=== PATIENT | female | born 1940 | race Caucasian/White ===

== ENCOUNTER 2021-05-30 05:50 | Day surgery (SDC) | payer MEDICARE, OTHER ==
[~2021-05-30 05:50] MED LIST: BALANCED SALT IRRIG SOLN COMB1 500 ML, EPINEPHRINE-PF 1:1000 0.5 MG IO ONE
[2021-05-30] MEDS ORDERED: TROPICAMIDE 1% OPHT DROP 3 ML BOTTLE ONE (06:38)
[2021-05-30] MEDS ORDERED: KETOROLAC 0.5% OPHT DROP 3 ML BOTTLE ONE (06:38)
[2021-05-30] MEDS ORDERED: CIPROFLOXACIN 0.3% OPHT DROP 2.5 ML BOTTLE ONE (06:38)
[2021-05-30] MEDS ORDERED: CYCLOPENTOLATE 2% OPHT DROP 2 ML BOTTLE ONE (06:39)
[2021-05-30] MEDS ORDERED: PHENYLEPHRINE 2.5% OPHT DROP 2 ML BOTTLE ONE (06:39)
[2021-05-30] MEDS ORDERED: LIDOCAINE-MPF 2% 5 ML VIAL ONE (07:23)
[2021-05-30] MEDS ORDERED: MOXIFLOXACIN HCL 3 ML OPHT DROPS ONE (07:23)
[2021-05-30] MEDS ORDERED: NEO/POLYMYX B/DEXAME OPHT OINT 3.5 GM TUBE ONE (07:23)
[2021-05-30] MEDS ORDERED: TIMOLOL MALEATE 0.5% OPHT DROP 5 ML BOTTLE ONE (07:23)
[2021-05-30] MEDS ORDERED: BALANCED SALT IRRIG SOLN COMB2 15 ML IRRIG.SOLN ONE (07:24)
[2021-05-30] MEDS ORDERED: HYALURONIDASE,OVINE 200 UNITS/ML VIAL ONE (07:24)
[2021-05-30] MEDS ORDERED: HYALURONATE SODIUM 12.8 MG/0.8 ML DISP.SYRIN ONE (07:24)
[2021-05-30] MEDS ORDERED: BALANCED SALT IRRIG SOLN COMB1 500 ML ONE (07:24)
[2021-05-30] MEDS ORDERED: ACETYLCHOLINE CHLORIDE 1% OPHT 1 EA KIT ONE (07:24)
[2021-05-30] MEDS ORDERED: BUPIVACAINE PF 0.5% 30 ML VIAL ONE (07:25)
[2021-05-30] MEDS ORDERED: BALANCED SALT IRRIG SOLN COMB1 500 ML, EPINEPHRINE-PF 1:1000 0.5 MG IO ONE (08:00)
[2021-05-30] MEDS ORDERED: FENTANYL CITRATE 100 MCG/2 ML AMPUL ONE (08:00)
[2021-05-30] MEDS ORDERED: PROPOFOL 200 MG/20 ML BOTTLE ONE (08:00)
== END 2021-05-30 11:40 ==
LOC: DS 05:50
PROVIDERS: ATTEND Ophthalmology
DX: E11.36 Type 2 diabetes mellitus with diabetic cataract (principal); H25.89 Other age-related cataract; I10 Essential (primary) hypertension; J45.909 Unspecified asthma, uncomplicated; J44.9 Chronic obstructive pulmonary disease, unspecified; M81.0 Age-related osteoporosis without current pathological fracture; Z85.3 Personal history of malignant neoplasm of breast; Z79.899 Other long term (current) drug therapy; Z98.890 Other specified postprocedural states; Z88.6 Allergy status to analgesic agent; Z88.8 Allergy status to other drugs, medicaments and biological substances; Z72.89 Other problems related to lifestyle
CPT/HCPCS: 66984; 71045; J0171; J3010; J3471; J3490 ×2; J7120; J7321; V2632; A4663

== ENCOUNTER 2021-08-08 05:52 | Day surgery (SDC) | payer MEDICARE, OTHER ==
[2021-08-08] MEDS ORDERED: PHENYLEPHRINE 2.5% OPHT DROP 2 ML BOTTLE ONE (06:35)
[2021-08-08] MEDS ORDERED: CYCLOPENTOLATE 1% OPHT DROP 2 ML BOTTLE ONE (06:35)
[2021-08-08] MEDS ORDERED: CIPROFLOXACIN 0.3% OPHT DROP 2.5 ML BOTTLE ONE (06:35)
[2021-08-08] MEDS ORDERED: KETOROLAC 0.5% OPHT DROP 3 ML BOTTLE ONE (06:35)
[2021-08-08] MEDS ORDERED: TROPICAMIDE 1% OPHT DROP 3 ML BOTTLE ONE (06:35)
[2021-08-08] MEDS ORDERED: FENTANYL CITRATE 100 MCG/2 ML AMPUL ONE (07:08)
[2021-08-08] MEDS ORDERED: LIDOCAINE-MPF 2% 5 ML VIAL ONE (07:15)
[2021-08-08] MEDS ORDERED: TIMOLOL MALEATE 0.5% OPHT DROP 5 ML BOTTLE ONE (07:15)
[2021-08-08] MEDS ORDERED: BALANCED SALT IRRIG SOLN COMB2 15 ML IRRIG.SOLN ONE (07:15)
[2021-08-08] MEDS ORDERED: MOXIFLOXACIN HCL 3 ML OPHT DROPS ONE (07:15)
[2021-08-08] MEDS ORDERED: NEO/POLYMYX B/DEXAME OPHT OINT 3.5 GM TUBE ONE (07:15)
[2021-08-08] MEDS ORDERED: BALANCED SALT IRRIG SOLN COMB1 500 ML ONE (07:16)
[2021-08-08] MEDS ORDERED: ACETYLCHOLINE CHLORIDE 1% OPHT 1 EA KIT ONE (07:16)
[2021-08-08] MEDS ORDERED: HYALURONATE SODIUM 12.8 MG/0.8 ML DISP.SYRIN ONE (07:16)
[2021-08-08] MEDS ORDERED: HYALURONIDASE,OVINE 200 UNITS/ML VIAL ONE (07:16)
[2021-08-08] MEDS ORDERED: BUPIVACAINE PF 0.5% 30 ML VIAL ONE (07:16)
[2021-08-08] MEDS ORDERED: BALANCED SALT IRRIG SOLN COMB1 500 ML, EPINEPHRINE-PF 1:1000 0.5 MG IO ONE (09:00)
== END 2021-08-08 10:35 | disposition home or self-care (01) ==
LOC: DS 05:52
PROVIDERS: ATTEND Ophthalmology
DX: E11.36 Type 2 diabetes mellitus with diabetic cataract (principal); H25.89 Other age-related cataract; I12.9 Hypertensive chronic kidney disease with stage 1 through stage 4 chronic kidney disease, or unspecified chronic kidney disease; E11.22 Type 2 diabetes mellitus with diabetic chronic kidney disease; J44.9 Chronic obstructive pulmonary disease, unspecified; N18.9 Chronic kidney disease, unspecified; E03.9 Hypothyroidism, unspecified; F32.9 Major depressive disorder, single episode, unspecified; Z79.899 Other long term (current) drug therapy; Z98.890 Other specified postprocedural states; Z88.6 Allergy status to analgesic agent; Z88.8 Allergy status to other drugs, medicaments and biological substances; Z72.89 Other problems related to lifestyle; Z20.822 Contact with and (suspected) exposure to COVID-19
CPT/HCPCS: 36415; 66984; 84132; 87426; J0171; J3010; J3471; J3490 ×2; J7120; J7321; V2632; A4663

== ENCOUNTER 2024-07-09 20:36 | Emergency (ER) | payer MEDICARE, OTHER ==
[~2024-07-09] VITALS: Ht 165.1 cm; Wt 104.3 kg
[2024-07-09] MEDS ORDERED: TDAP DIPH,PERTUSS,TET VAC/PF 0.5 ML DISP.SYRIN IM ONE (23:06)
[2024-07-09] MEDS: TDAP DIPH,PERTUSS,TET VAC/PF 0.5 ML DISP.SYRIN IM ONE (23:09)
[2024-07-10] MEDS ORDERED: AMOX-427 PO (00:26)
[2024-07-10] MEDS: NEOMY/BACITRA/POLYMYXIN B OINT UD PACKET TP ONE (00:43)
[2024-07-10] MEDS ORDERED: NEOMY/BACITRA/POLYMYXIN B OINT UD PACKET TP ONE (00:43)
[2024-07-10 05:36] VITALS: BP 129/85; TEMP 207.5; O2SAT 93
== END 2024-07-10 05:37 | disposition home or self-care (01) ==
LOC: ER 20:51
DX: S71.012A Laceration without foreign body, left hip, initial encounter (principal); G30.9 Alzheimer's disease, unspecified; F02.80 Dementia in other diseases classified elsewhere, unspecified severity, without behavioral disturbance, psychotic disturbance, mood disturbance, and anxiety; G20.A1 Parkinson's disease without dyskinesia, without mention of fluctuations; K58.9 Irritable bowel syndrome, unspecified; Z79.899 Other long term (current) drug therapy; Z88.5 Allergy status to narcotic agent; W17.89XA Other fall from one level to another, initial encounter; Y93.89 Activity, other specified; Y92.89 Other specified places as the place of occurrence of the external cause; Y99.8 Other external cause status
CPT/HCPCS: 90715; A4606; A4663